=== PATIENT | female | born 1945 | race Two or more races ===

== ENCOUNTER 2022-07-16 18:47 | Inpatient (IN) | payer OTHER ==
[~2022-07-16] VITALS: Ht 160 cm; Wt 45.8 kg
[2022-07-16] MEDS ORDERED: cefTRIAXone 1GM/50ML D5W 50 ML IV ONE (19:30)
[2022-07-16] MEDS ORDERED: IOHEXOL 300 MG/ML 100ML BOTTLE IJ ONE (20:21)
[2022-07-16 20:40] LABS: Basophils # (auto) 0.1 10 ^3/uL (0-0.2); Basophils % (auto) 0.8 % (0.0-2.0); Eosinophils # (auto) 0.2 10 ^3/uL (0-0.8); Eosinophils % (auto) 2.1 % (0.0-7.0); Hematocrit 36.2 % (36.0-46.0); Hemoglobin 11.9 g/dL (12.2-16.2); Lymphocytes # (auto) 1.3 10 ^3/uL (0.4-5.4); Lymphocytes % (auto) 17.6 % (10.0-50.0); Mean Corpuscular Hemoglobin 28.7 pg (28.0-32.0); Mean Corpuscular Volume 87.2 fL (80.0-100.0); Monocytes # (auto) 0.4 10 ^3/uL (0-1.3); Monocytes % (auto) 4.9 % (0.0-12.0); Neutrophils # (auto) 5.5 10 ^3/uL (1.6-8.6); Neutrophils % (auto) 74.6 % (37.0-80.0); Red Blood Cells 4.15 10^6/uL (4.0-5.20); Red Cell Distribution Width 14.8 % (11.8-14.3); White Blood Cell 7.4 10^3/uL (4.4-10.8)
[2022-07-16 21:01] LABS: Albumin 3.6 g/dL (3.4-5.0); Calcium 8.8 mg/dL (8.5-10.1); Magnesium 2.3 mg/dL (1.6-2.6)
[2022-07-16 21:03] LABS: BUN/Creatinine Ratio 31.9; Bilirubin, Total 0.2 mg/dL (0.2-1.0)
[2022-07-17 02:10] LABS: Urine Bacteria NONE SEEN /hpf (None Seen); Urine Blood Negative /uL (Negative); Urine Mucus FEW (None Seen); Urine WBC 53 /hpf (0 - 5); Urine WBC Clumps PRESENT /hpf (None Seen)
[2022-07-17 02:11] LABS: Urine Specific Gravity > 1.050 (1.001-1.035)
[2022-07-17] MEDS ORDERED: HYDROcodone-ACET 5/325MG TAB PO ONE (02:30)
[2022-07-17] MEDS ORDERED: ALBUTEROL SULF 2.5 MG/0.5ML(0.5%) NEB SOLN NEB PRN (06:00)
[2022-07-17] MEDS ORDERED: ONDANSETRON HCL 4 MG/2 ML VIAL IV PRN (06:00)
[2022-07-17] MEDS ORDERED: ACETAMINOPHEN 325 MG TAB PO PRN (06:00)
[2022-07-17] MEDS: cefTRIAXone 1GM/50ML D5W 50 ML IV SCH (09:15)
[2022-07-17 09:26] VITALS: BP 136/70
[2022-07-17] MEDS: SACUBITRIL-VALSARTAN 24mg/26mg TAB PO SCH ×2 (09:53→22:29)
[2022-07-17] MEDS: PANTOPRAZOLE 40 MG TAB PO SCH (09:53)
[2022-07-17] MEDS: CARVEDILOL 3.125 MG TAB PO SCH ×2 (09:54→22:28)
[2022-07-17] MEDS ORDERED: FUROSEMIDE 40 MG/4 ML VIAL IV ONE (14:45)
[2022-07-17] MEDS: HYDROcodone-ACET 5/325MG TAB PO PRN (18:02)
[2022-07-17] MEDS ORDERED: MIRA50TA PO (22:23)
[2022-07-17] MEDS ORDERED: ALBU108A5 INH (22:23)
[2022-07-17] MEDS ORDERED: FLUT100M (22:23)
[2022-07-17] MEDS ORDERED: SACU1TAB PO (22:23)
[2022-07-17] MEDS ORDERED: TIOT17SP INH (22:23)
[2022-07-17] MEDS ORDERED: NITR100C6 PO (22:23)
[2022-07-17] MEDS ORDERED: CARV6.2551 PO (22:23)
[2022-07-17] MEDS ORDERED: DULO1CAP6 PO (22:23)
[2022-07-17] MEDS ORDERED: OMEP-260 PO (22:23)
[2022-07-17] MEDS ORDERED: MONT-8 PO (22:23)
[2022-07-17] MEDS ORDERED: HYD25TP TOP (22:23)
[2022-07-17] MEDS ORDERED: IPRAAER6 INH (22:23)
[2022-07-17] MEDS ORDERED: PRED10TA PO (22:23)
[2022-07-17] MEDS: MONTELUKAST SODIUM 10 MG TAB PO SCH (22:28)
[2022-07-18 05:00] VITALS: BP 119/64
[2022-07-18 05:52] LABS: Basophils # (auto) 0.1 10 ^3/uL (0-0.2); Basophils % (auto) 1.1 % (0.0-2.0); Eosinophils # (auto) 0.5 10 ^3/uL (0-0.8); Hemoglobin 11.8 g/dL (12.2-16.2); Lymphocytes # (auto) 1.6 10 ^3/uL (0.4-5.4); Lymphocytes % (auto) 24.6 % (10.0-50.0); Mean Corpuscular Hemoglobin 28.9 pg (28.0-32.0); Mean Corpuscular Hgb Conc. 32.8 g/dL (32.0-36.0); Mean Corpuscular Volume 88.2 fL (80.0-100.0); Monocytes # (auto) 0.6 10 ^3/uL (0-1.3); Monocytes % (auto) 9.2 % (0.0-12.0); Neutrophils # (auto) 3.8 10 ^3/uL (1.6-8.6); Neutrophils % (auto) 57.1 % (37.0-80.0); Nucleated Red Blood Cells % 0.1 %; Red Blood Cells 4.09 10^6/uL (4.0-5.20); White Blood Cell 6.7 10^3/uL (4.4-10.8)
[2022-07-18 06:12] LABS: Potassium 4.7 mmol/L (3.5-5.1)
[2022-07-18 06:26] LABS: Albumin 3.3 g/dL (3.4-5.0); BUN/Creatinine Ratio 31.8; Bilirubin, Total 0.4 mg/dL (0.2-1.0)
[2022-07-18 09:00] VITALS: BP 99/63
[2022-07-18] MEDS: SACUBITRIL-VALSARTAN 24mg/26mg TAB PO SCH ×2 (09:37→22:00)
[2022-07-18] MEDS: cefTRIAXone 1GM/50ML D5W 50 ML IV SCH (09:37)
[2022-07-18] MEDS: PANTOPRAZOLE 40 MG TAB PO SCH (09:38)
[2022-07-18] MEDS: CARVEDILOL 3.125 MG TAB PO SCH ×2 (10:00→22:00)
[2022-07-18] MEDS: HYDROcodone-ACET 5/325MG TAB PO PRN (12:15)
[2022-07-18 13:00] VITALS: BP 96/60
[2022-07-18 16:59] VITALS: BP 107/55
[2022-07-18 22:00] VITALS: BP 97/48
[2022-07-18] MEDS: MONTELUKAST SODIUM 10 MG TAB PO SCH (22:00)
[2022-07-19 05:00] VITALS: BP 108/59
[2022-07-19 09:00] VITALS: BP 99/60
[2022-07-19] MEDS: cefTRIAXone 1GM/50ML D5W 50 ML IV SCH (09:47)
[2022-07-19] MEDS: PANTOPRAZOLE 40 MG TAB PO SCH (09:47)
[2022-07-19] MEDS: SACUBITRIL-VALSARTAN 24mg/26mg TAB PO SCH ×2 (09:57→22:47)
[2022-07-19] MEDS: CARVEDILOL 3.125 MG TAB PO SCH ×2 (09:57→22:48)
[2022-07-19] MEDS: HYDROcodone-ACET 5/325MG TAB PO PRN ×2 (12:50→21:04)
[2022-07-19 13:00] VITALS: BP 107/50
[2022-07-19 16:42] VITALS: BP 101/53
[2022-07-19 22:00] VITALS: BP 129/70
[2022-07-19] MEDS: MONTELUKAST SODIUM 10 MG TAB PO SCH (22:47)
[2022-07-20 05:00] VITALS: BP 124/74
[2022-07-20 06:39] LABS: Basophils # (auto) 0.1 10 ^3/uL (0-0.2); Basophils % (auto) 1.2 % (0.0-2.0); Eosinophils # (auto) 0.5 10 ^3/uL (0-0.8); Eosinophils % (auto) 8.6 % (0.0-7.0); Hematocrit 34.2 % (36.0-46.0); Hemoglobin 11.3 g/dL (12.2-16.2); Lymphocytes # (auto) 1.5 10 ^3/uL (0.4-5.4); Lymphocytes % (auto) 25.7 % (10.0-50.0); Mean Corpuscular Hemoglobin 28.9 pg (28.0-32.0); Mean Corpuscular Hgb Conc. 33.1 g/dL (32.0-36.0); Mean Corpuscular Volume 87.4 fL (80.0-100.0); Monocytes # (auto) 0.6 10 ^3/uL (0-1.3); Monocytes % (auto) 9.5 % (0.0-12.0); Neutrophils # (auto) 3.2 10 ^3/uL (1.6-8.6); Red Blood Cells 3.91 10^6/uL (4.0-5.20); Red Cell Distribution Width 14.3 % (11.8-14.3); White Blood Cell 5.8 10^3/uL (4.4-10.8)
[2022-07-20 06:51] LABS: Calcium 8.6 mg/dL (8.5-10.1); Potassium 4.4 mmol/L (3.5-5.1)
[2022-07-20 06:53] LABS: BUN/Creatinine Ratio 42.9
[2022-07-20] MEDS: HYDROcodone-ACET 5/325MG TAB PO PRN ×2 (08:04→22:39)
[2022-07-20 09:00] VITALS: BP 110/57
[2022-07-20] MEDS: SACUBITRIL-VALSARTAN 24mg/26mg TAB PO SCH ×2 (09:00→22:39)
[2022-07-20] MEDS: cefTRIAXone 1GM/50ML D5W 50 ML IV SCH (09:00)
[2022-07-20] MEDS: CARVEDILOL 3.125 MG TAB PO SCH ×2 (09:01→22:40)
[2022-07-20] MEDS: PANTOPRAZOLE 40 MG TAB PO SCH (09:02)
[2022-07-20 13:00] VITALS: BP 102/52
[2022-07-20] MEDS ORDERED: DULoxetine HCL 30 MG CAP PO PRN (13:00)
[2022-07-20 16:55] VITALS: BP 103/67
[2022-07-20 19:24] VITALS: BP 103/67
[2022-07-20 22:00] VITALS: BP 112/51
[2022-07-20] MEDS: MONTELUKAST SODIUM 10 MG TAB PO SCH (22:39)
[2022-07-21 05:00] VITALS: BP 113/66
[2022-07-21] MEDS: cefTRIAXone 1GM/50ML D5W 50 ML IV SCH (08:40)
[2022-07-21 09:20] VITALS: BP 97/55
[2022-07-21] MEDS: CARVEDILOL 3.125 MG TAB PO SCH ×2 (09:42→22:58)
[2022-07-21] MEDS: SACUBITRIL-VALSARTAN 24mg/26mg TAB PO SCH ×2 (09:43→22:58)
[2022-07-21] MEDS: PANTOPRAZOLE 40 MG TAB PO SCH (09:43)
[2022-07-21] MEDS ORDERED: PATIENTS OWN MEDICATION (Duloxetine HCl 1 CAP) PO SCH (10:00)
[2022-07-21] MEDS: DULoxetine HCL 30 MG CAP PO SCH ×2 (10:00→10:01)
[2022-07-21] MEDS: HYDROcodone-ACET 5/325MG TAB PO PRN (11:32)
[2022-07-21 13:00] VITALS: BP 125/65
[2022-07-21 17:22] VITALS: BP 108/58
[2022-07-21] MEDS: Ensure HIGH Protein Chocolate 8oz Bottle PO SCH (17:40)
[2022-07-21 22:00] VITALS: BP 105/52
[2022-07-21] MEDS: MONTELUKAST SODIUM 10 MG TAB PO SCH (22:58)
[2022-07-22 05:00] VITALS: BP 107/51
[2022-07-22] MEDS: Ensure HIGH Protein Chocolate 8oz Bottle PO SCH ×3 (08:14→17:43)
[2022-07-22 08:45] VITALS: BP 106/51
[2022-07-22] MEDS: cefTRIAXone 1GM/50ML D5W 50 ML IV SCH (08:53)
[2022-07-22 09:18] VITALS: BP_SYST 100; BP_SYST 106; BP_DIAS 51
[2022-07-22] MEDS: CARVEDILOL 3.125 MG TAB PO SCH ×2 (09:35→21:59)
[2022-07-22] MEDS: DULoxetine HCL 30 MG CAP PO SCH (09:40)
[2022-07-22] MEDS: SACUBITRIL-VALSARTAN 24mg/26mg TAB PO SCH ×2 (09:41→21:59)
[2022-07-22] MEDS: PANTOPRAZOLE 40 MG TAB PO SCH (09:41)
[2022-07-22 13:04] VITALS: BP 103/52
[2022-07-22] MEDS: HYDROcodone-ACET 5/325MG TAB PO PRN ×2 (15:04→20:12)
[2022-07-22 17:02] VITALS: BP 110/60
[2022-07-22] MEDS: MONTELUKAST SODIUM 10 MG TAB PO SCH (21:59)
[2022-07-22 22:00] VITALS: BP 115/54
[2022-07-23 05:20] VITALS: BP 111/62
[2022-07-23] MEDS: Ensure HIGH Protein Chocolate 8oz Bottle PO SCH ×3 (08:23→17:30)
[2022-07-23] MEDS: cefTRIAXone 1GM/50ML D5W 50 ML IV SCH (08:37)
[2022-07-23 09:26] VITALS: BP 91/49
[2022-07-23] MEDS: PANTOPRAZOLE 40 MG TAB PO SCH (09:42)
[2022-07-23] MEDS: CARVEDILOL 3.125 MG TAB PO SCH ×2 (09:42→21:04)
[2022-07-23] MEDS: SACUBITRIL-VALSARTAN 24mg/26mg TAB PO SCH ×2 (09:42→21:04)
[2022-07-23] MEDS: DULoxetine HCL 30 MG CAP PO SCH (09:42)
[2022-07-23 13:05] VITALS: BP 100/99
[2022-07-23] MEDS: HYDROcodone-ACET 5/325MG TAB PO PRN (14:50)
[2022-07-23] MEDS: MONTELUKAST SODIUM 10 MG TAB PO SCH (21:04)
[2022-07-23 22:00] VITALS: BP 113/58
[2022-07-24 04:30] VITALS: BP 113/58
[2022-07-24 05:00] VITALS: BP 107/52
[2022-07-24] MEDS: Ensure HIGH Protein Chocolate 8oz Bottle PO SCH ×3 (08:22→18:23)
[2022-07-24 08:30] VITALS: BP 97/51
[2022-07-24] MEDS: PANTOPRAZOLE 40 MG TAB PO SCH (09:13)
[2022-07-24] MEDS: HYDROcodone-ACET 5/325MG TAB PO PRN ×3 (09:13→22:06)
[2022-07-24] MEDS: cefTRIAXone 1GM/50ML D5W 50 ML IV SCH (09:13)
[2022-07-24] MEDS: DULoxetine HCL 30 MG CAP PO SCH (09:13)
[2022-07-24] MEDS: CARVEDILOL 3.125 MG TAB PO SCH ×2 (09:14→22:01)
[2022-07-24] MEDS: SACUBITRIL-VALSARTAN 24mg/26mg TAB PO SCH ×2 (09:14→21:51)
[2022-07-24 12:20] VITALS: BP 97/51
[2022-07-24 17:00] VITALS: BP 106/54
[2022-07-24] MEDS: MONTELUKAST SODIUM 10 MG TAB PO SCH (21:51)
[2022-07-24 22:00] VITALS: BP 113/58
[2022-07-25 05:00] VITALS: BP 116/66
[2022-07-25] MEDS: HYDROcodone-ACET 5/325MG TAB PO PRN ×2 (05:57→10:14)
[2022-07-25 07:50] VITALS: BP 99/49
[2022-07-25] MEDS: Ensure HIGH Protein Chocolate 8oz Bottle PO SCH ×3 (07:50→18:30)
[2022-07-25 09:00] VITALS: BP 99/49
[2022-07-25] MEDS: CARVEDILOL 3.125 MG TAB PO SCH ×3 (10:00→21:37)
[2022-07-25] MEDS: SACUBITRIL-VALSARTAN 24mg/26mg TAB PO SCH ×3 (10:09→21:37)
[2022-07-25] MEDS: PANTOPRAZOLE 40 MG TAB PO SCH (10:09)
[2022-07-25] MEDS: cefTRIAXone 1GM/50ML D5W 50 ML IV SCH (10:10)
[2022-07-25] MEDS: DULoxetine HCL 30 MG CAP PO SCH (10:10)
[2022-07-25 13:00] VITALS: BP 110/49
[2022-07-25 17:00] VITALS: BP 100/55
[2022-07-25] MEDS: MONTELUKAST SODIUM 10 MG TAB PO SCH (21:41)
[2022-07-25 22:00] VITALS: BP 106/64
[2022-07-26 05:00] VITALS: BP 97/57
[2022-07-26] MEDS: HYDROcodone-ACET 5/325MG TAB PO PRN ×4 (06:16→20:30)
[2022-07-26] MEDS: Ensure HIGH Protein Chocolate 8oz Bottle PO SCH ×3 (08:00→17:29)
[2022-07-26 09:00] VITALS: BP 118/56
[2022-07-26] MEDS: SACUBITRIL-VALSARTAN 24mg/26mg TAB PO SCH (09:56)
[2022-07-26] MEDS: DULoxetine HCL 30 MG CAP PO SCH (09:57)
[2022-07-26] MEDS: CARVEDILOL 3.125 MG TAB PO SCH (09:57)
[2022-07-26 13:00] VITALS: BP 99/52
[2022-07-26 16:36] VITALS: BP 99/54
== END 2022-07-26 21:00 | disposition home or self-care (01) | DRG 698 ==
LOC: EDBD 18:47 → ER 18:51 → OVERFLOW 07-17 05:56 → WEST WING 07-17 20:52
PROVIDERS: ADMIT Nurse Practitioner; ATTEND Nurse Practitioner Acute Care
DX: T83.012A Breakdown (mechanical) of nephrostomy catheter, initial encounter (principal); J96.21 Acute and chronic respiratory failure with hypoxia; I13.0 Hypertensive heart and chronic kidney disease with heart failure and stage 1 through stage 4 chronic kidney disease, or unspecified chronic kidney disease; Z20.822 Contact with and (suspected) exposure to COVID-19; D25.9 Leiomyoma of uterus, unspecified; E66.01 Morbid (severe) obesity due to excess calories; I50.9 Heart failure, unspecified; J44.9 Chronic obstructive pulmonary disease, unspecified; K44.9 Diaphragmatic hernia without obstruction or gangrene; K57.30 Diverticulosis of large intestine without perforation or abscess without bleeding; K76.0 Fatty (change of) liver, not elsewhere classified; N13.9 Obstructive and reflux uropathy, unspecified; N18.9 Chronic kidney disease, unspecified; N20.0 Calculus of kidney; N26.1 Atrophy of kidney (terminal); N28.1 Cyst of kidney, acquired; N30.90 Cystitis, unspecified without hematuria; Y73.2 Prosthetic and other implants, materials and accessory gastroenterology and urology devices associated with adverse incidents
CPT/HCPCS: 36415; 71045; 74177; 78707; 80048; 80053; 81001; 83690; 83735; 83880; 84484; 85025; 87086; 93005; 96365; G0378; J0696